=== PATIENT | male | born 1940 | race Caucasian/White ===

== ENCOUNTER → 2020-01-03 10:09 | Outpatient (CLI) | payer MEDICARE, SELFPAY ==
[2020-01-04 18:00] LABS: COVID19 Sendout Not Detected (Not Detected)
== END ==
PROVIDERS: Family Provider Internal Medicine; PCP Internal Medicine; Visit Provider Physician Assistant
DX: Z11.59 Encounter for screening for other viral diseases (principal)
CPT/HCPCS: 87635

== ENCOUNTER → 2021-11-13 09:04 | Outpatient (CLI) | payer OTHER, SELFPAY ==
--- NOTE | 2021-11-13 | DI.ECHO.S_ITS ---
[place] [facility]---------+ [facility] +---------+ : : [address] : [address] : : : : [id number] : : : : Phone: [phone]+ Echocardiogram Report + + :Name: ISHMAEL RUSSO Study Date: 11/13/2021 Height: 66 in : :[facility] ReadingLocation: Weight: 168 lb : : Gender: Male BSA: 1.9 m2 : :: 1940 Age: 81 yrs BP: 167/101 mmHg: :Reason For Study: Bradycardia : :Ordering Physician: MARIA T, : :MARVEL Performed By: Roger Pham : :Referring: MRAVEL LIVE : + + Interpretation Summary Sinus bradycardia with heart rate 54-60 bpm. Normal LV size and wall thickness; mild global hypokinesis. EF is 45-50%. Stage II diastolic dysfunction. Mild LA enlargement; otherwise normal chamber sizes. Aortic valve is a trileaflet structure with mild calcifications. There is aortic sclerosis without stenosis with mild - moderate associated AI. Right coronary leaflet mobility is moderately reduced, but the valve still opens well. Otherwise no significant valvular abnormalities. No prior study available for comparison. Procedure: A two-dimensional transthoracic echocardiogram with color flow and Doppler was performed. The study quality was technically adequate. There is no prior echocardiogram noted for this patient. The patient was in sinus bradycardia with heart rates between 54-60 bpm during the exam. Left Ventricle: The left ventricle is normal in size and wall thickness. Left ventricular systolic function is mildly reduced. The ejection fraction is estimated to be 45-50%. There is mild global hypokinesis of the left ventricle. Diastolic parameters suggest a pseudonormalization pattern, consistent with probable elevated filling pressures. Right Ventricle: The right ventricle is normal in size and function. Atria: The left atrium is mildly dilated. Right atrial size is normal. The interatrial septum grossly appears intact with no obvious evidence for an atrial septal defect. Mitral Valve: The mitral valve is normal in structure and function. There is mild mitral regurgitation. Aortic Valve: There is mild aortic valve sclerosis. There is mild to moderate aortic regurgitation. Tricuspid Valve: The tricuspid valve is normal in structure and function. There is mild tricuspid regurgitation. The right ventricular systolic pressure is estimated to be at least 34 mmHg based on an estimated right atrial pressure of 3 mm Hg. Pulmonic Valve: The pulmonic valve is normal in structure and function. There is mild pulmonic regurgitation. Great Vessels: The aortic root is mildly dilated. The dimensions of the ascending aorta are normal. The IVC is of normal diameter and collapses greater than 50% with a sniff. This suggests a low right atrial pressure of 3 mm Hg. Pericardium/ Pleura There is no pericardial effusion. There is no pleural effusion. MMode/2D Measurements & Calculations LVIDd: 5.5 cm LVOT diam: 2.3 cm LVIDs: 4.2 cm Ao root diam: 4.0 cm FS: 23.5 % asc Aorta Diam: 3.4 cm IVSd: 0.96 cm LVPWd: 0.90 cm LV duncan. diameter/BSA (cm/m^2): 3.0 LV sys. diameter/BSA (cm/m^2): 2.3 LA A2 area: 21.6 cm2 RA long axis: 6.0 cm LA A4 area: 24.7 cm2 RA area: 18.2 cm2 LA length (vol): 6.7 cm RA vol: 46.5 ml LA vol: 67.8 ml RA : 25.0 ml/m2 LA vol index: 36.5 ml/m2 TAPSE: 2.2 cm Doppler Measurements & Calculations Ao V2 max: 148.3 cm/sec LVOT Max Mikael: 63.7 cm/sec Ao V2 mean: 104.4 cm/sec LV V1 max P.6 mmHg Ao max P.8 mmHg LV V1 VTI: 16.9 cm Ao mean P.8 mmHg NAYELI(I,D): 2.1 cm2 Ao V2 VTI: 32.4 cm NAYELI(V,D): 1.7 cm2 sev ratio: 0.52 NAYELI indexed to BSA (cm^2/m^2): 1.1 AI P1/2t: 663.8 msec AI dec slope: 173.6 cm/sec2 MV E max mikael: 50.0 cm/sec TR max mikael: 276.6 cm/sec MV A max mikael: 71.5 cm/sec TR max P.6 mmHg MV E/A: 0.70 Med Peak E' Mikael: 3.2 cm/sec E/E' med: 15.8 Lat Peak E' Mikael: 4.3 cm/sec E/E' lat: 11.7 E/e' average: 13.7 MV dec time: 0.33 sec SV(LVOT): 68.6 ml Electronically signed by: Renetta Murray M.D. on Reading Physician:11/14/2021 01:52 AM
== END ==
PROVIDERS: Family Provider Internal Medicine; PCP Internal Medicine; Referring Provider Internal Medicine; Visit Provider Internal Medicine
DX: I77.810 Thoracic aortic ectasia (principal); R00.1 Bradycardia, unspecified; R42 Dizziness and giddiness; I08.3 Combined rheumatic disorders of mitral, aortic and tricuspid valves; I45.10 Unspecified right bundle-branch block
CPT/HCPCS: 93306

== ENCOUNTER 2024-08-20 12:56 | Emergency (ER) | payer MEDICARE, SELFPAY ==
[2024-08-20] VITALS (10 sets, daily range): BP systolic 116–159; BP diastolic 73–88; PULSE 79–110; RESP 18–26; TEMP 36.5; O2SAT 95–98; BMI 24.3
--- NOTE | 2024-08-20 13:01 | DI.RAD.S_ITS ---
PROCEDURE: XR CHEST 1V INDICATIONS: chest pain TECHNIQUE: One view of the chest was acquired. COMPARISON: [facility], CT, CT CHEST ABDOMEN PELVIS WITH CONTRAST, 07/20/2022, 10:33. FINDINGS: Surgical changes and devices: None. Lungs and pleura: Mild chronic reticulations. No focal consolidation. No pleural effusions or pneumothorax. Mediastinum: Mediastinal contours appear normal. Heart size is normal. Bones and chest wall: No suspicious bony lesions. Overlying soft tissues appear unremarkable. IMPRESSION: No acute cardiopulmonary abnormality is seen. Approved by: Saman Sommers M.D. on 08/20/2024 at 13:34
--- NOTE | 2024-08-20 13:05 | EKG_ITS ---
[place] [id number] [place] [id number] Test Date: 2024-08-20 Pat Name: Bill Lee Department: [facility] Room: Gender: Male Clinical Trial Educator: KUMAR : 1940 Requested By: Order Number: [id number] Reading MD: Constantine Horn Measurements Intervals [place] Rate: 100 P: 11 RI: 150 QRS: -25 QRSD: 74 T: 1 QT: 344 QTc: 443 Interpretive Statements Normal sinus rhythm Nonspecific ST abnormality Electronically Signed On 08-22-2024 17:38:23 PDT by Constantine Horn
[2024-08-20 13:22] LABS: Add Manual Diff / Slide Review NO; Basophils Absolute Auto 100 /uL (0-100); Basophils Percent Auto 0.8 % (0-2); Eosinophils Absolute Auto 100 /uL (0-450); Eosinophils Percent Auto 0.8 % (2-4); Hematocrit 43.4 % (41-53); Hemoglobin 14.5 g/dL (13.5-17.5); Lymphocytes Absolute Auto 1500 /uL (1100-4500); Lymphocytes Percent Auto 14.7 % (25-40); Mean Corpuscular HGB Conc 33.4 % (30-36); Mean Corpuscular Hemoglobin 31.4 PG (26-34); Monocytes Absolute Auto 900 /uL (0-900); Monocytes Percent Auto 8.5 % (3-14); Neutrophils Absolute Auto 7600 /uL (1500-7000); Neutrophils Percent Auto 75.2 % (50-75); Platelet Count 322 X10^3/uL (150-400); Red Blood Cell Count 4.61 X10^6/uL (4.5-5.9); Red Cell Distribution Width 13.4 % (11.6-14.8); White Blood Cell Count 10.2 X10^3/uL (4.5-11.0)
[2024-08-20 13:36] LABS: INR 1.2 (0.9-1.3); Prothrombin Time 13.2 SECONDS (9.4-12.5)
[2024-08-20 13:39] LABS: Alanine Aminotransferase 16 IU/L (<50); Albumin 4.1 g/dL (3.5-5.0); Albumin Globulin Ratio 1.3 (1.0-2.8); Alkaline Phosphatase 91 U/L (38-126); Aspartate Aminotransferase 25 IU/L (17-59); BUN Creatinine Ratio 23.2 (6-22); Bilirubin Total 0.9 mg/dL (0.2-1.3); Blood Urea Nitrogen 23 mg/dL (9-20); Calcium 9.6 mg/dL (8.4-10.2); Carbon Dioxide 25 mmol/L (22-32); Chloride 102 mmol/L (98-107); Creatine Kinase 31 U/L (55-170); Estimated Glomerular Filt Rate > 60 mL/min (>60); Globulin 3.2 g/dL (1.7-4.1); Glucose 125 mg/dL (70-99); HEMOLYSIS 36 (0-50); Lipase 38 U/L (23-300); PTT Partial Thromboplastin Tim 34 SECONDS (25.1-36.5); Potassium 4.4 mmol/L (3.4-5.1); Sodium 137 mmol/L (137-145); Total Protein 7.3 g/dL (6.3-8.2)
[2024-08-20 13:50] LABS: NT-proBNP (BNP-Adult 18+) 955 pg/mL (<450); Troponin I 0.013 ng/mL (0.01-0.034)
--- NOTE | 2024-08-20 14:29 | ED_ITS ---
HPI - Arrhythmia/Palpitations General Chief Complaint: Arrhythmia/Palpitations Stated Complaint: Rapid heart beat Time Seen by Provider: 08/20/24 14:28 Source: patient Mode of arrival: Ambulatory History of Present Illness HPI narrative: Patient 84-year-old male history of SVT presenting today with palpitations. He reports that for the last 1 week he has had palpitations every single day which is very abnormal for him. His heart rate goes up into the 140s and can stay there for a number of hours. He feels a little weak dizzy lightheaded but has not passed out. He only knows his heart rate is the fast because he checks the heart rate with his blood pressure cuff. It does not have any kind of chest pain. He says primary care provider last week because of the palpitations but reported he was in a sinus rhythm. He currently is in a sinus rhythm heart rate in the 80s. Takes no medications for this daily. No other symptoms. Related Data Allergies Allergy/AdvReac Type Severity Reaction Status Date / Time No Known Drug Allergies Allergy Unverified 01/03/20 10:07 Patient History Social History Smoking Status: Never smoker Smoking Status: Never smoker Exam Initial Vital Signs Initial Vital Signs: Vital Signs Pulse Rate 103 H 08/20/24 13:03 Pulse Oximetry 97 08/20/24 13:03 GENERAL: Alert pleasant well-appearing 84-year-old male and in [no acute] distress. HEENT: Head atraumatic,EOMI, pupils reactive, face symmetric, [moist] mucous membranes CARDIOVASCULAR: Regular rate and rhythm without murmurs, rubs or gallops. RESPIRATORY: Breath sounds equal bilaterally, no wheezes rales or rhonchi. ABDOMEN: Soft, nontender. Normoactive bowel sounds all 4 quadrants. No guarding or rebound. EXTREMITIES: Normal range of motion, no clubbing or edema. Neurovascularly intact NEUROLOGICAL: Alert and oriented x4.Normal gait and speech. Cranial nerves II through XII grossly intact. SKIN: Warm, dry, no laceration, no petechiae, no rashes or lesions. Course Orders Ordered: ED Orders 08/20/24 13:01 XR chest 1V Stat EKG-12 Lead Stat 08/20/24 13:10 Complete Blood Count AUTO DIFF Stat Comprehensive Metabolic Panel Stat Lipase Stat Magnesium Stat NT-proBNP (BNP-Adult 18+) Stat PTT Partial Thromboplastin Benjamin Stat Prothrombin Time INR Stat Troponin & CK Cardiac Panel Stat Discontinued Medications Aspirin (Aspirin 81 Mg Chew Tab) 324 mg PO NOW ONE Stop: 08/20/24 13:01 Last Admin: 08/20/24 13:14 Dose: Not Given Documented By: LUIS Vital Signs Vital signs: Vital Signs - 8 hr 08/20/24 13:03 08/20/24 13:04 08/20/24 13:04 Temperature Pulse Rate 103 H 100 H Respiratory Rate Blood Pressure 159/82 H Pulse Oximetry 97 97 Oxygen Delivery Method 08/20/24 13:05 08/20/24 13:30 08/20/24 13:31 Temperature 97.7 F Pulse Rate 110 H 95 H 96 H Respiratory Rate 18 20 21 Blood Pressure 159/87 H Pulse Oximetry 96 98 98 Oxygen Delivery Method Room Air 08/20/24 13:31 08/20/24 14:00 08/20/24 14:00 Temperature Pulse Rate 83 Respiratory Rate Blood Pressure 116/82 123/73 Pulse Oximetry 97 Oxygen Delivery Method Room Air 08/20/24 14:30 08/20/24 14:43 08/20/24 14:43 Temperature Pulse Rate 83 79 Respiratory Rate 23 26 H Blood Pressure 159/88 H Pulse Oximetry 95 96 Oxygen Delivery Method Room Air 08/20/24 15:00 08/20/24 15:01 08/20/24 15:01 Temperature Pulse Rate 80 80 Respiratory Rate 25 H 19 Blood Pressure 159/78 H Pulse Oximetry 96 96 Oxygen Delivery Method MDM - Arrhythmia/Palpitations Lab Data 08/20/24 13:10 08/20/24 13:10 Labs: Lab Results 08/20/24 Range/Units 13:10 WBC 10.2 (4.5-11.0) X10^3/uL RBC 4.61 (4.5-5.9) X10^6/uL Hgb 14.5 (13.5-17.5) g/dL Hct 43.4 (41-53) % MCV 94.0 (80-100) fL MCH 31.4 (26-34) PG MCHC 33.4 (30-36) % RDW 13.4 (11.6-14.8) % Plt Count 322 (150-400) X10^3/uL Neut % (Auto) 75.2 H (50-75) % Lymph % (Auto) 14.7 L (25-40) % [place] % (Auto) 8.5 (3-14) % Eos % (Auto) 0.8 L (2-4) % Baso % (Auto) 0.8 (0-2) % Neut # (Auto) 7600 H (0770-6917) /uL Lymph # (Auto) 1500 (0967-6651) /uL [place] # (Auto) 900 (0-900) /uL Eos # (Auto) 100 (0-450) /uL Baso # (Auto) 100 (0-100) /uL PT 13.2 H (9.4-12.5) SECONDS INR 1.2 (0.9-1.3) APTT 34 (25.1-36.5) SECONDS Sodium 137 (137-145) mmol/L Potassium 4.4 (3.4-5.1) mmol/L Chloride 102 (98-107) mmol/L Carbon Dioxide 25 (22-32) mmol/L BUN 23 H (9-20) mg/dL Creatinine 0.99 (0.66-1.25) mg/dL Estimated GFR > 60 (>60) mL/min BUN/Creatinine Ratio 23.2 H (6-22) Glucose 125 H (70-99) mg/dL Calcium 9.6 (8.4-10.2) mg/dL Magnesium 2.0 (1.6-2.3) mg/dL Total Bilirubin 0.9 (0.2-1.3) mg/dL AST 25 (17-59) IU/L ALT 16 (<50) IU/L Alkaline Phosphatase 91 (38-126) U/L Total Creatine Kinase 31 L (55-170) U/L Troponin I 0.013 (0.01-0.034) ng/mL NT-Pro-B Natriuret Pep 955 H (<450) pg/mL Total Protein 7.3 (6.3-8.2) g/dL Albumin 4.1 (3.5-5.0) g/dL Globulin 3.2 (1.7-4.1) g/dL Albumin/Globulin Ratio 1.3 (1.0-2.8) Lipase 38 (23-300) U/L Imaging Data Chest x-ray: Radiologist's Impresson: PROCEDURE: XR CHEST 1V INDICATIONS: chest pain TECHNIQUE: One view of the chest was acquired. COMPARISON: [facility], CT, CT CHEST ABDOMEN PELVIS WITH CONTRAST, 07/20/2022, 10:33. FINDINGS: Surgical changes and devices: None. Lungs and pleura: Mild chronic reticulations. No focal consolidation. No pleural effusions or pneumothorax. Mediastinum: Mediastinal contours appear normal. Heart size is normal. Bones and chest wall: No suspicious bony lesions. Overlying soft tissues appear unremarkable. IMPRESSION: No acute cardiopulmonary abnormality is seen. Approved by: Saman Sommers M.D. on 08/20/2024 at 13:34 ECG Data Attestation: I personally reviewed and interpreted this ECG as follows: Prior ECG tracings: not available for review Interpretation: Sinus rhythm rate 100 LA interval 150 QRS [address] changes no priors to compare MDM Narrative Medical decision making narrative: Patient is an 84-year-old male who presents today with palpitations. He has had palpitations every day for the last 1 week. No way of checking what rhythm he was in but he is currently in a sinus rhythm heart rate in the 80s if blood pressure in the 150s. Blood work has been reviewed overall reassuring CBC shows no leukocytosis no anemia CMP no electrolyte abnormality no HERNAN glucose 125 BNP slightly elevated 955 troponin 0.013 Chest x-ray no acute cardiopulmonary EKGs reviewed sinus rhythm At this time I recommend that patient get a ZIO patch. He may also return to the ED when he was having symptoms. At this time no need for any further workup or evaluation he was asymptomatic now and in a normal sinus rhythm heart rate less than 100 Discharge Plan Departure Patient Disposition: Home Clinical Impression: Palpitations Instructions: DI for Palpitations Activity Restrictions/Additional Instructions: *You have been diagnosed with palpitations *What to do: At this time 1 unit of having so that we can see what your rhythm is you will also need a ZIO patch *Continue to take medications as directed *Follow up with your primary care provider in 2-3 days or call [phone] *Return to ER if you should have increased palpitations chest pain shortness a breath [or] any new, worsening or concerning symptoms Referrals: Stephon Gottlieb MD [Primary Care Provider] - Stand Alone Forms: Patient Portal/API/Survey
== END 2024-08-20 15:15 | disposition home or self-care (01) ==
PROVIDERS: Emergency Provider Emergency Medicine; Family Provider Internal Medicine; PCP Internal Medicine
DX: R00.2 Palpitations (principal); R07.9 Chest pain, unspecified; R42 Dizziness and giddiness
CPT/HCPCS: 36415; 71045; 80053; 82550; 83690; 83735; 83880; 84484; 85025; 85610; 85730; 93005; 99283; 99284

== ENCOUNTER → 2024-11-19 14:45 | Outpatient (CLI) | payer MEDICARE, SELFPAY ==
--- NOTE | 2024-11-22 18:03 | DI.NM.S_ITS ---
DATE OF SERVICE: 11/19/2024 EXERCISE PERFUSION STUDY INDICATIONS: Paroxysmal SVT, idiopathic cardiomyopathy. RADIOPHARMACEUTICAL: 25.9 millicurie technetium-99m Myoview IV was injected at stress and 27.5 millicurie technetium-99m Myoview IV was injected at rest. CARDIAC STRESS: The patient underwent exercise stress test under the supervision of an attending staff. The patient walked on Hao protocol for 7 minutes and 40 seconds, achieved 10.1 METS of workload, KOOK -56% and 113% of target heart rate. Resting blood pressure 120/80 and peak blood pressure 168/98. Baseline rhythm sinus with intermittent PACs and some occasional PVCs. During early part of exercise, the patient continued to have PVCs, PACs, short run of atrial tachycardia. However, during peak exercise, PVCs and PACs got suppressed. There reappeared in recovery and continued to persist. In recovery, the patient has frequent PACs including short run of atrial tachycardia without any obvious AFib. Also had three beats run of SVT. No sustained ventricular tachycardia. Nonspecific ST-T changes without any obvious ischemic EKG changes. No chest pain. Had some shortness of breath. RAW DATA: There is increased subdiaphragmatic activity. GATED STUDY: Resting LV ejection fraction 53 and stress LV ejection fraction is 69% without any obvious wall motion abnormalities. Resting end-diastolic volume 102 mL. TID ratio 1.0, which is within normal limits. Lung/heart ratio 0.28, which is within normal limits. MYOCARDIAL PERFUSION SCAN: Stress supine, resting supine and stress prone images were compared to each other. Stress supine images revealed small size, moderately decreased perfusion of basal inferior wall extending into the inferior apex. Resting supine images revealed small size, mildly decreased perfusion of basal inferior wall and some inferoapical defect, however, stress prone images revealed normal myocardial perfusion. CONCLUSION: This is a normal myocardial perfusion study with evidence of tissue attenuation artifact which got improved during stress prone images. Stress prone images revealed normal myocardial perfusion. Excellent exercise capacity. KOKO -58%. Mildly hypertensive blood pressure response. The patient has baseline frequent PACs and PVCs which initially got worsen during early part of exercise, but got suppressed at peak exercise and re-appeared in recovery. In recovery, had three beats run of SVT without any ventricular tachycardia. No obvious AFib. No chest pain. Had some shortness of breath. As far as perfusion scan is concerned, this is a low-risk myocardial perfusion scan. Correlate clinically. Bill Lee - RINA/adriana/SHANNAN doc#: [id number]/job#: [id number] dd: 11/22/2024 16:31:00 dt: 11/22/2024 17:37:00 DICTATING MD/COPIES TO: Brooke Mckeon MD COPIES MNE: KENNA;
== END ==
LOC: NUCM 14:46
PROVIDERS: Family Provider Internal Medicine; PCP Internal Medicine; Referring Provider Internal Medicine; Visit Provider Internal Medicine Cardiovascular Disease
DX: I47.10 Supraventricular tachycardia, unspecified (principal); I10 Essential (primary) hypertension; I49.1 Atrial premature depolarization; I49.3 Ventricular premature depolarization
CPT/HCPCS: 78452; 93017; A9502